=== PATIENT | male | born 1955 | race Caucasian/White ===

== ENCOUNTER 2018-05-11 07:57 | Outpatient (CLI) | payer OTHER ==
[2018-05-11 09:07] LABS: BUN - BLOOD UREA NITROGEN 15 mg/dL (6-20); CARBON DIOXIDE - CO2 23 mmol/L (21-32); CHLORIDE 106 mmol/L (101-111); CHOL/HDL RATIO 3.2 (<5.0); CHOLESTEROL 176 mg/dL; CREATININE 0.8 mg/dL (0.6-1.2); GFR - MDRD 98 (>89); GLUCOSE 111 mg/dL (70-100); HDL CHOLESTEROL 55 mg/dL; LDL CHOLESTEROL,CALCULATED 98 mg/dL; LDL/HDL RATIO 1.8 (<3.6); SODIUM 138 mmol/L (135-145); VLDL CHOLESTEROL 23 mg/dL
== END 2018-05-11 07:58 | disposition home or self-care (01) ==
LOC: LAB 07:57
PROVIDERS: ATTEND Internal Medicine
DX: Z00.00 Encounter for general adult medical examination without abnormal findings (principal)
CPT/HCPCS: 36415; 80048; 80061; 83721

== ENCOUNTER 2019-05-13 07:40 | Outpatient (CLI) | payer BC ==
[2019-05-13 08:24] LABS: BUN - BLOOD UREA NITROGEN 15 mg/dL (6-20); CALCIUM 8.5 mg/dL (8.5-10.3); CARBON DIOXIDE - CO2 21 mmol/L (21-32); CHLORIDE 108 mmol/L (101-111); CHOL/HDL RATIO 3.3 (<5.0); CHOLESTEROL 167 mg/dL; CREATININE 0.8 mg/dL (0.6-1.2); GFR - MDRD 98 (>89); GLUCOSE 112 mg/dL (70-100); HDL CHOLESTEROL 50 mg/dL; LDL CHOLESTEROL,CALCULATED 91 mg/dL; LDL/HDL RATIO 1.8 (<3.6); SODIUM 139 mmol/L (135-145); VLDL CHOLESTEROL 26 mg/dL
== END 2019-05-13 07:41 | disposition home or self-care (01) ==
LOC: LAB 07:40
PROVIDERS: ATTEND Student in an Organized Health Care Education/Training Program
DX: Z00.00 Encounter for general adult medical examination without abnormal findings (principal)
CPT/HCPCS: 36415; 80048; 80061; 83721; 84153

== ENCOUNTER 2020-06-12 07:48 | Outpatient (CLI) | payer BC ==
[2020-06-12 08:28] LABS: CHOL/HDL RATIO 3.5 (<5.0); CHOLESTEROL 176 mg/dL; HDL CHOLESTEROL 51 mg/dL; LDL CHOLESTEROL,CALCULATED 98 mg/dL; LDL/HDL RATIO 1.9 (<3.6); TRIGLYCERIDES 135 mg/dL; VLDL CHOLESTEROL 27 mg/dL
== END 2020-06-12 07:49 | disposition home or self-care (01) ==
LOC: LAB 07:48
PROVIDERS: ATTEND Student in an Organized Health Care Education/Training Program
DX: I10 Essential (primary) hypertension (principal); E55.9 Vitamin D deficiency, unspecified
CPT/HCPCS: 36415; 80061; 82306; 82652; 83721

== ENCOUNTER 2021-08-28 07:53 | Outpatient (CLI) | payer MEDICARE, OTHER ==
[2021-08-28 08:27] LABS: BUN - BLOOD UREA NITROGEN 15 mg/dL (6-20); CALCIUM 8.8 mg/dL (8.5-10.3); CARBON DIOXIDE - CO2 22 mmol/L (21-32); CHLORIDE 110 mmol/L (101-111); CHOL/HDL RATIO 2.9 (<5.0); CHOLESTEROL 166 mg/dL; CREATININE 0.9 mg/dL (0.6-1.2); GFR - MDRD 85 (>89); GLUCOSE 112 mg/dL (70-100); HDL CHOLESTEROL 58 mg/dL; LDL CHOLESTEROL,CALCULATED 88 mg/dL; LDL/HDL RATIO 1.5 (<3.6); POTASSIUM 4.2 mmol/L (3.5-5.0); SODIUM 140 mmol/L (135-145); TRIGLYCERIDES 100 mg/dL; VLDL CHOLESTEROL 20 mg/dL
== END 2021-08-28 07:54 | disposition home or self-care (01) ==
LOC: LAB 07:53
PROVIDERS: ATTEND Student in an Organized Health Care Education/Training Program
DX: Z00.00 Encounter for general adult medical examination without abnormal findings (principal)
CPT/HCPCS: 36415; 80048; 80061; 83721

== ENCOUNTER 2021-09-12 06:42 | Outpatient (CLI) | payer MEDICARE, OTHER ==
--- NOTE | 2021-09-12 09:15 | Ultrasound Report ---
PROCEDURE: Aorta Screening INDICATIONS: SCREENING TECHNIQUE: Real time scanning was performed of the aorta and iliac arteries, with image documentatio n. COMPARISON: None FINDINGS: Aorta: Proximal aortic diameter measures 2.8 x 2.9 cm. Mid-aorta measures 1.8 x 1.9 cm. Distal aor tic diameter is 1.8 x 2.2 cm. Iliac arteries: Right common iliac artery measures 1.2 x 1.3 cm. Left common iliac artery measures 1.4 x 1.4 cm. IMPRESSION: No abdominal aortic aneurysm. Reviewed by: Kieran Cordova MD on 09/12/2021 9:14 AM PDT Approved by: Kieran Cordova MD on 09/12/2021 9:14 AM PDT Station ID: [id number]
== END 2021-09-12 06:43 | disposition home or self-care (01) ==
LOC: DI 06:42
PROVIDERS: ATTEND Student in an Organized Health Care Education/Training Program
DX: Z00.00 Encounter for general adult medical examination without abnormal findings (principal); Z13.6 Encounter for screening for cardiovascular disorders

== ENCOUNTER 2023-02-03 07:31 | Emergency (ER) | payer MEDICARE, OTHER ==
[2023-02-03 08:13] LABS: BASOPHILS # (AUTO) 0.1 10^3/uL (0.0-0.1); BASOPHILS % (AUTO) 0.8 %; EOSINOPHILS # (AUTO) 0.2 10^3/uL (0.0-0.7); EOSINOPHILS % (AUTO) 2.9 %; HGB - HEMOGLOBIN 15.9 g/dL (14.0-18.0); LYMPHOCYTES # (AUTO) 1.5 10^3/uL (1.5-3.5); LYMPHOCYTES % (AUTO) 19.2 %; MEAN CORPUSCULAR HEMOGLOBIN 31.5 pg (27.0-31.0); MEAN CORPUSCULAR HGB CONC 34.6 g/dL (32.0-36.0); MEAN CORPUSCULAR VOLUME 91.1 fL (80.0-94.0); MONOCYTES # (AUTO) 0.7 10^3/uL (0.0-1.0); MONOCYTES % (AUTO) 9.5 %; NEUTROPHILS # (AUTO) 5.1 10^3/uL (1.5-6.6); NEUTROPHILS % (AUTO) 67.3 %; PLT - PLATELET COUNT 215 10^3/uL (130-450); RED BLOOD COUNT 5.05 10^6/uL (4.70-6.10); RED CELL DISTRIBUTION WIDTH 13.3 % (12.0-15.0); WHITE BLOOD COUNT 7.5 x10^3/uL (4.8-10.8)
[2023-02-03 08:28] LABS: ALBUMIN 4.3 g/dL (3.2-5.5); ALBUMIN/GLOBULIN RATIO 1.5 (1.0-2.2); BILIRUBIN,TOTAL 0.7 mg/dL (0.2-1.0); CALCIUM 9.2 mg/dL (8.5-10.3); CREATININE 0.9 mg/dL (0.6-1.3); POTASSIUM 3.9 mmol/L (3.5-4.5); TOTAL PROTEIN 7.1 g/dL (6.4-8.9)
--- NOTE | 2023-02-03 08:52 | ED Physician Documentation ---
PD HPI GI BLEED - Stated complaint Stated Complaint: ,BLOOD - Chief complaint Chief Complaint: Abd Pain - History obtained from History obtained from: Patient - History of Present Illness Timing - onset: Last night Timing - details: Abrupt onset, Still present Associated symptoms: BRBPR, Constipation (he had noted feeling of rectal stool but unable to have BM for day or so. Was pushing hard for BM several times without stool out. last night noted onset of bright red blood per rectum without any stool out. Noted some dripping to underwear through the night into this morning. some rectal pain.). No: Vomiting, Black/tarry stool Contributing factors: No: Sick contact, Bad food, Recent antibiotics, Anticoagulated Similar symptoms before: Has not had sx before Recently seen: Not recently seen Review of Systems Constitutional: denies: Fever, Chills Nose: reports: Sinus pressure / pain (for several weeks or more. Saw ENT and was due to concern of sinus cyst but toldhe didnot have that. No Rx.) GI: reports: Constipation (with firm stool and feeling of rectal fullness c/w needing to defectate for 1-2 days. Pushing several times to have BM without output.). denies: Abdominal Pain, Vomiting, Diarrhea : denies: Dysuria, Frequency PD PAST MEDICAL HISTORY - Past Medical History Cardiovascular: Hypertension Respiratory: None Neuro: Migraines Endocrine/Autoimmune: None GI: Other (loose stools and was placed on cholestyramine for that. ) - Present Medications Home Medications: Ambulatory Orders Medication Instructions Recorded Confirmed Cholestyramine [Questran] 4 gm PO DAILY 02/03/23 02/03/23 Fluticasone Propionate 2 spr NS DAILY 30 Days #1 ml 02/03/23 Galcanezumab-Gnlm [Emgality Pen] 02/03/23 Rizatriptan Benzoate [Rizatriptan] 5 mg PO DAILY 02/03/23 02/03/23 carvediloL [Coreg] 6.25 mg PO DAILY 02/03/23 02/03/23 polyethylene glycoL 3350(BULK) 17 gm PO DAILY PRN #1 each 02/03/23 [Miralax] - Allergies Allergies/Adverse Reactions: Allergies Allergy/AdvReac Type Severity Reaction Status Date / Time No Known Drug Allergies Allergy Verified 02/03/23 07:45 PD ED PE NORMAL - Vitals Vital signs reviewed: Yes - General General: Alert and oriented X 3, No acute distress, Well developed/nourished - Abdomen Abdomen: Normal bowel sounds, Soft, Non tender, Non distended, No organomegaly - Male Male : Deferred - Rectal Rectal: Other (no hemorrhoids noted. Some mild swelling just in rectum at anterior left area, without mass. There is stool firmly felt at tip of my finger, but not able to digitiall disimpact. Red blood in vault. No melena. ) Results - Vitals Vitals: Vital Signs - 24 hr 02/03/23 02/03/23 02/03/23 07:46 10:04 12:11 Temperature 36.6 C 36.4 C L Heart Rate 117 H 96 78 Respiratory 16 18 16 Rate Blood Pressure 177/100 H 161/99 H 162/105 H O2 Saturation 95 97 95 Oxygen O2 Source Room air - Labs Labs: Laboratory Tests 02/03/23 02/03/23 02/03/23 08:07 08:07 09:13 WBC 7.5 RBC 5.05 Hgb 15.9 Hct 46.0 MCV 91.1 MCH 31.5 H MCHC 34.6 RDW 13.3 Plt Count 215 MPV 9.0 Neut # (Auto) 5.1 Lymph # (Auto) 1.5 [place] # (Auto) 0.7 Eos # (Auto) 0.2 Baso # (Auto) 0.1 Absolute Nucleated RBC 0.00 Nucleated RBC % 0.0 Sodium 139 Potassium 3.9 Chloride 108 Carbon Dioxide 25 Anion Gap 6.0 BUN 16 Creatinine 0.9 Estimated GFR (MDRD) 84 L Glucose 123 H Calcium 9.2 Total Bilirubin 0.7 AST 22 ALT 24 Alkaline Phosphatase 80 Total Protein 7.1 Albumin 4.3 Globulin 2.8 Albumin/Globulin Ratio 1.5 Lipase 70 Urine Color YELLOW Urine Clarity CLEAR Urine pH 6.0 Ur Specific [place] 1.020 Urine Protein NEGATIVE Urine Glucose (UA) NEGATIVE Urine Ketones NEGATIVE Urine Occult Blood NEGATIVE Urine Nitrite NEGATIVE Urine Bilirubin NEGATIVE Urine Urobilinogen 0.2 (NORMAL) Ur Leukocyte Esterase NEGATIVE Ur Microscopic Review NOT INDICATED Urine Culture Comments NOT INDICATED - Rads (name of study) abd/pelvic CT Relevant Findings:: Prelim report reviewed (no masses. Normal bowle wall thickness. No acute cause forthe bleeding. ), EMP independent interpretation of test PD Medical Decision Making - ED course Complexity details: reviewed results, re-evaluated patient (CBC is good with Hgb 15. Vitals are good. Does not appear to be having too much blood loss. Underwear and a pad do have appearance of red blood but not saturated.), considered differential (red rectal bleeding in setting of some rectal stool impaction. Presume fissure or such. However cannnot exclude rectal mass or other abnormal. Can get CT to eval, but also suggest scope in near future. ), d/w patient, d/w sql server consultant (Dr. Alanis, who concurs with discharge, stool sfotener, and repeat followup if persists or increases. Otherwise f/u for presumed colonoscopy in near future. ) ED course: He had a feeling of rectal urgency and fullness and having to have a bowel movement. He tried several times yesterday without any output. He noted onset of bright red blood per rectum without any stool last night which continued today. He is dripping out onto his underwear. Some rectal fullness and discomfort. No abdominal pain bloating or distention. No prior similar. Remote history of diverticulitis 10 years ago. No current episodes of hemorrhoids nor blood with wiping. Initial impression on exam is nontender abdomen. Rectal exam did not show any external hemorrhoids. Mild fullness just in the inner aspect with without any obvious fissures. There is a firm ball of stool just at the tip of my finger and I cannot really reach it beyond that. Presumably some rectal irritation from the stool impaction and likely movement [id number] with attempted bowel movements. However cannot exclude mass structure or diverticula or other process. A CT scan would be appropriate to exclude these. Initial blood count is good at a hemoglobin of 15 so no significant blood loss estimated. Vitals are good. CT scan does not show any obvious masses, localized infection such as diverticulitis or colitis or other obvious cause of bleeding. At this point clinically would sound likely to be the rectal stool that is been having some impaction over a couple of days. This did come out with the enema and he has a feeling of less rectal pressure. Presume a small fissure created. However there could still be concern for rectal wall abnormalities not found on CT. I. I did talk with Dr. Alanis on-call for surgery who suggested we could treated as a small tear or fissure at this point and see if the bleeding stops with stool softener and more regularity. Recheck if not improved over the next day or 2 and return if worsening bleeding. She did urged the patient to follow-up for a subsequent colonoscopy once better to evaluate for any other abnormalities. The patient states he had a last colonoscopy at least several years ago. Unrelated, the patient complains of right-sided sinus pressure without any fevers or drainage. He been told by his oral surgeon on a recent visit that he had sinus fluid on an x-ray. He asked about potential treatment and I suggested fluticasone. Departure - Departure Disposition: Home, Self Care Clinical Impression: Rectal bleeding, Impacted stool in rectum, Sinus pressure, Rectal fissure Condition: Stable Record reviewed to determine appropriate education?: Yes Instructions: ED Hematochezia Stable Follow-Up: Elly Alanis MD [Provider Admit Priv/Credential] - Prescriptions: Fluticasone Propionate 2 spr NS DAILY 30 Days #1 ml polyethylene glycoL 3350(BULK) [Miralax] 17 gm PO DAILY PRN #1 each PRN Reason: Constipation Comments: No masses or diverticulitis/colitis are seen on your CT scan. This does sound most likely to be a small tear or fissure at the rectal area likely related to the firm stool there. Other considerations could be some other abnormality of the mucosal wall or polyp or such. The initial treatment would be just a softer stool and sitting baths in warm water to help clear the area and cleanse it. Use MiraLAX once or twice daily to as needed for soft stools. You do not want to be watery per se. At this point soft would be good without really much formed stool for the next several days at least until improved. Stay well-hydrated. There likely will be some bleeding still out over the next day or 2 as the tissue heals in the area. Recheck if it persists more than a couple of days or return if you have abdominal pain, increasing rectal pain, lightheadedness, fever, significant uptake in the degree of bleeding or other concerns. Otherwise if the bleeding stops in the next day or 2 and no other problems then continue with some looser to slightly formed stool and try to avoid firm stools/constipation. Follow-up with the general surgery office for subsequent discussion about colonoscopy to evaluate the area. This will be best done when this is fully healed so over the next at least few weeks before wanting to do it but you can consult with the surgery office even later this week, call for an appointment. Regarding your sinus pressure and congestion, I would suggest fluticasone nasal spray once or twice daily for the next several weeks to a month and see how it improves. Forms: PCP List Discharge Date/Time: 02/03/23 14:50
[2023-02-03 09:33] LABS: BILIRUBIN,URINE NEGATIVE (NEGATIVE); CLARITY,URINE CLEAR (CLEAR); GLUCOSE, URINE (UA) NEGATIVE (NEGATIVE); KETONES,URINE (UA) NEGATIVE (NEGATIVE); LEUKOCYTE ESTERASE, URINE NEGATIVE (NEGATIVE); NITRITE,URINE NEGATIVE (NEGATIVE); OCCULT BLOOD,URINE NEGATIVE (NEGATIVE); PROTEIN,URINE NEGATIVE (NEGATIVE); UROBILINOGEN,URINE 0.2 (NORMAL) E.U./dL (NORMAL)
[2023-02-03] MEDS ORDERED: MINERAL OIL ENEMA 133 ML BOTTLE RC STA (09:39)
[2023-02-03] MEDS ORDERED: DOCUSATE SODIUM 100 MG CAPSULE PO STA (09:39)
[2023-02-03] MEDS ORDERED: LACTULOSE 10 GM /15 ML UDC PO STA (09:39)
[2023-02-03] MEDS ORDERED: LIDOCAINE 1% 2 ML VIAL ONE (10:30)
[2023-02-03] MEDS ORDERED: LIDOCAINE 1% 2 ML VIAL SUBQ STA (11:43)
--- NOTE | 2023-02-03 12:17 | CT Report ---
PROCEDURE: ABDOMEN/PELVIS W INDICATIONS: lower GI/rectal bleeding since yest CONTRAST: 100ml omni 300 TECHNIQUE: After the administration of IV contrast, 5 mm thick sections acquired from the diaphragms to the symp hysis. 5 mm thick coronal and sagittal reformats were acquired. For radiation dose reduction, the f ollowing was used: automated exposure control, adjustment of mA and/or kV according to patient size. COMPARISON: None FINDINGS: Image quality: Excellent. Lung bases and heart: Unremarkable. Liver: No solid mass. Gallbladder and biliary tree: Removed. Spleen: No splenomegaly. Pancreas: No pancreatic ductal dilation. Adrenals: No adrenal nodule. Kidneys and ureters: No hydronephrosis. No renal cystic lesion which requires follow up. No solid mas s. Simple left renal cyst. Bowel and peritoneum: No bowel distension. No pathologic free fluid. Mild hiatal hernia. Lymph nodes: No central or retroperitoneal adenopathy. Vessels: No infrarenal aortic aneurysm. PELVIS Reproductive organs: Unremarkable. Bladder: No abnormal wall thickening, accounting for underdistension. Pelvic lymph nodes: No pelvic adenopathy by size criteria. Bones: No aggressive osseous abnormality. Other: Small bilateral fat containing inguinal hernia. IMPRESSION: No visualized cause of bleeding. Reviewed by: Gracia Melo MD on 02/03/2023 12:16 PM PDT Approved by: Gracia Melo MD on 02/03/2023 12:16 PM PDT Station ID: [id number]
[2023-02-03 12:18] VITALS: BP 162/105; O2SAT 95
[2023-02-03] MEDS ORDERED: iohexoL-300 100 ML VIAL IVP ONE (13:44)
== END 2023-02-03 14:50 | disposition home or self-care (01) ==
LOC: ED 07:31
DX: K62.5 Hemorrhage of anus and rectum (principal); K56.41 Fecal impaction; K60.2 Anal fissure, unspecified; J34.89 Other specified disorders of nose and nasal sinuses
CPT/HCPCS: 36415; 74177; 80053; 81003; 83690; 85025; 99284; A9270; Q9967; 81001; 87086

== ENCOUNTER 2023-06-09 19:06 | Emergency (ER) | payer MEDICARE, OTHER ==
[2023-06-09 20:10] LABS: BASOPHILS # (AUTO) 0.1 10^3/uL (0.0-0.1); BASOPHILS % (AUTO) 0.6 %; EOSINOPHILS # (AUTO) 0.3 10^3/uL (0.0-0.7); EOSINOPHILS % (AUTO) 2.8 %; HCT - HEMATOCRIT 49.4 % (42.0-52.0); LYMPHOCYTES # (AUTO) 1.3 10^3/uL (1.5-3.5); LYMPHOCYTES % (AUTO) 13.2 %; MEAN CORPUSCULAR HEMOGLOBIN 31.5 pg (27.0-31.0); MEAN CORPUSCULAR HGB CONC 34.4 g/dL (32.0-36.0); MEAN CORPUSCULAR VOLUME 91.7 fL (80.0-94.0); MEAN PLATELET VOLUME 9.1 fL (7.4-11.4); MONOCYTES # (AUTO) 0.9 10^3/uL (0.0-1.0); MONOCYTES % (AUTO) 8.3 %; NEUTROPHILS # (AUTO) 7.6 10^3/uL (1.5-6.6); NEUTROPHILS % (AUTO) 74.8 %; PLT - PLATELET COUNT 223 10^3/uL (130-450); RED BLOOD COUNT 5.39 10^6/uL (4.70-6.10); RED CELL DISTRIBUTION WIDTH 13.2 % (12.0-15.0); WHITE BLOOD COUNT 10.2 x10^3/uL (4.8-10.8)
[2023-06-09 20:21] LABS: INR 1.1 (0.8-1.2); PT - PROTHROMBIN TIME 11.6 secs (9.9-12.6)
[2023-06-09 20:27] LABS: ALBUMIN 4.4 g/dL (3.2-5.5); ALBUMIN/GLOBULIN RATIO 1.4 (1.0-2.2); BILIRUBIN,TOTAL 0.5 mg/dL (0.2-1.0); CALCIUM 10.1 mg/dL (8.5-10.3); CREATININE 0.9 mg/dL (0.6-1.3); POTASSIUM 4.1 mmol/L (3.5-4.5); TOTAL PROTEIN 7.6 g/dL (6.4-8.9)
--- NOTE | 2023-06-09 21:38 | ED Physician Documentation ---
PD HPI GI BLEED - Stated complaint Stated Complaint: RECTAL BLEEDING - Chief complaint Chief Complaint: Abd Pain - History obtained from History obtained from: Patient - History of Present Illness Timing - onset: Today Timing - duration: Hours Timing - details: Abrupt onset, Still present Associated symptoms: BRBPR, Diarrhea Contributing factors: Other (hx of constipation and rectal ugency treated with cholestyramine) Improved by: BM Worsened by: Palpation Similar symptoms before: No diagnosis Recently seen: Not recently seen - Additional information Additional information: To take this les cathie Bob 67-year-old August López has a history of rectal urgency for which she was treated with cholestyramine. This usually allows him to have normal bowel movements and he has reduced his use of this to every other day. He had had a history of constipation was seen in the emergency department here in January of last year. He did not have a follow-up colonoscopy done and he has not seen gastroenterology. He reports having had issues with bowel movements for 5 or 6 years after getting his gallbladder out. Today he reports multiple loose stools with blood. He has had diarrhea 5 times today. He has pain in his rectum. Review of Systems Constitutional: denies: Fever Eyes: denies: Decreased vision Ears: denies: Ear pain Nose: denies: Congestion Throat: denies: Sore throat Respiratory: denies: Cough GI: reports: Diarrhea, Bloody / black stool. denies: Vomiting : denies: Dysuria, Frequency Skin: denies: Rash Musculoskeletal: denies: Neck pain, Back pain, Extremity pain Neurologic: denies: Generalized weakness, Focal weakness, Numbness PD PAST MEDICAL HISTORY - Past Medical History Past Medical History: Yes Cardiovascular: Hypertension Respiratory: None Neuro: Migraines Endocrine/Autoimmune: None GI: Other - Past Surgical History Past Surgical History: Yes General: Cholecystectomy - Present Medications Home Medications: Ambulatory Orders Medication Instructions Recorded Confirmed Cholestyramine [Questran] 4 gm PO DAILY 02/03/23 02/03/23 Fluticasone Propionate 2 spr NS DAILY 30 Days #1 ml 02/03/23 Galcanezumab-Gnlm [Emgality Pen] 02/03/23 Rizatriptan Benzoate [Rizatriptan] 5 mg PO DAILY 02/03/23 02/03/23 carvediloL [Coreg] 6.25 mg PO DAILY 02/03/23 02/03/23 polyethylene glycoL 3350(BULK) 17 gm PO DAILY PRN #1 each 02/03/23 [Miralax] Hydrocortisone Acetate [Proctocort] 30 mg RC BID #20 supp.rect 06/09/23 - Allergies Allergies/Adverse Reactions: Allergies Allergy/AdvReac Type Severity Reaction Status Date / Time No Known Drug Allergies Allergy Verified 06/09/23 19:27 - Social History Does the pt smoke?: No Smoking Status: Never smoker PD ED PE NORMAL - Vitals Vital signs reviewed: Yes (Tachycardic and hypertensive) - General General: Alert and oriented X 3, Well developed/nourished, Other (Rod Buster tone and flattened affect consistent with concern) - HEENT HEENT: Atraumatic, PERRL, EOMI - Cardiac Cardiac: No murmur, Other (Tachycardic to 100) - Respiratory Respiratory: No respiratory distress, Clear bilaterally - Abdomen Abdomen: Soft, Non tender - Rectal Rectal: Other (On rectal exam there is a fleshy mass consistent with a external hemorrhoid that is tender and bleeding. 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, No motor deficit, No sensory deficit, Normal speech Eye Opening: Spontaneous Motor: Obeys Commands Verbal: Oriented GCS Score: 15 Results - Vitals Vitals: Vital Signs - 24 hr 06/09/23 06/09/23 19:20 21:08 Temperature 36.8 C Heart Rate 108 H 80 Respiratory 22 18 Rate Blood Pressure 178/123 H 170/100 H O2 Saturation 98 94 Oxygen O2 Source Room air - Labs Labs: Laboratory Tests 06/09/23 06/09/23 06/09/23 20:05 20:05 20:05 WBC 10.2 RBC 5.39 Hgb 17.0 Hct 49.4 MCV 91.7 MCH 31.5 H MCHC 34.4 RDW 13.2 Plt Count 223 MPV 9.1 Neut # (Auto) 7.6 H Lymph # (Auto) 1.3 L [place] # (Auto) 0.9 Eos # (Auto) 0.3 Baso # (Auto) 0.1 Absolute Nucleated RBC 0.00 Nucleated RBC % 0.0 PT 11.6 INR 1.1 Sodium Potassium Chloride Carbon Dioxide Anion Gap BUN Creatinine Estimated GFR (MDRD) Glucose Calcium Total Bilirubin AST ALT Alkaline Phosphatase Total Protein Albumin Globulin Albumin/Globulin Ratio Blood Type O POSITIVE Antibody Screen NEGATIVE 06/09/23 20:05 WBC RBC Hgb Hct MCV MCH MCHC RDW Plt Count MPV Neut # (Auto) Lymph # (Auto) [place] # (Auto) Eos # (Auto) Baso # (Auto) Absolute Nucleated RBC Nucleated RBC % PT INR Sodium 137 Potassium 4.1 Chloride 107 Carbon Dioxide 24 Anion Gap 6.0 BUN 14 Creatinine 0.9 Estimated GFR (MDRD) 84 L Glucose 105 H Calcium 10.1 Total Bilirubin 0.5 AST 25 ALT 27 Alkaline Phosphatase 97 Total Protein 7.6 Albumin 4.4 Globulin 3.2 Albumin/Globulin Ratio 1.4 Blood Type Antibody Screen PD Medical Decision Making - ED course Complexity details: reviewed old records, reviewed results, re-evaluated patient, considered differential, d/w patient Reviewed Lab Results: We reviewed a complete blood count showing a normal white blood cell count normal hemoglobin hematocrit and platelets coagulations were unremarkable chemistries showed normal electrolytes normal kidney and liver function. I interpreted these blood test indicate that the patient's blood loss was not significant enough to cause a significant drop in his blood count and the overall process more benign. This appears consistent with the bleeding hemorrhoids found on exam and the inflammation found in the rectum. ED course: 67-year-old male with bloody diarrhea and inflamed hemorrhoids has not had follow-up from his prior visit. Today this looks like illness is confined to the area of interest and treatment specifically for the hemorrhoids is indicated as well as a follow-up. Departure - Departure Disposition: 01 Home, Self Care Clinical Impression: Bleeding external hemorrhoids Condition: Stable Instructions: Hydrocortisone suppositories, ED Hemorrhoids, ED Hematochezia Stable Follow-Up: Dave Garland MD [Primary Care Provider] - Elly Alanis MD [Provider Admit Priv/Credential] - Prescriptions: Hydrocortisone Acetate [Proctocort] 30 mg RC BID #20 supp.rect Comments: August, today it looks like you have some inflamed external hemorrhoids that are bleeding. There is significant swelling and inflammation. This may represent a form of inflammatory bowel disease. We have initiated treatment with hydrocortisone suppositories. I have e-scribed Proctocort to the community pharmacy here in [place]. Use these twice per day and expect to have some improvement in bleeding, pain and swelling over the next 2-3 days. Today your blood counts are normal despite the blood loss. If you have worsening or persistence of significant blood loss or have a fainting episode return to the emergency department for further evaluation. My recommendation is to follow-up with the surgeon (Dr. Alanis) for colonoscopy and biopsies for confirmation of a diagnosis. Further treatment may be indicated with specific agents and your general bowel symptoms may improve dramatically.
[2023-06-09] MEDS: HYDROCORTISONE 25 MG SUPPOSITORY PR STA (22:21)
[2023-06-09 23:02] VITALS: BP 170/112; O2SAT 95
== END 2023-06-09 22:30 | disposition home or self-care (01) ==
LOC: ED 19:06
DX: K64.5 Perianal venous thrombosis (principal); I10 Essential (primary) hypertension; Z79.899 Other long term (current) drug therapy
CPT/HCPCS: 36415; 80053; 85025; 85610; 86850; 86900; 86901; 99283; J3490

== ENCOUNTER 2023-07-26 10:09 | Emergency (ER) | payer MEDICARE, OTHER ==
[2023-07-26 10:38] VITALS: O2SAT 97
--- NOTE | 2023-07-26 11:21 | ED Physician Documentation ---
PD HPI HEADACHE - Stated complaint Stated Complaint: NAUSEA,HEADACHE - Chief complaint Chief Complaint: Neuro - History obtained from History obtained from: Patient - History of Present Illness Timing - onset: How many days ago (5) Timing - onset during: Light activity Timing - duration: Days (5) Timing - details: Gradual onset, Still present Worst headache ever?: No: Worst headache ever? (feels similar chracter and intensity to his regular migraines, but has persisted much longer than typical.) Quality: Throbbing, Aching Improved by: Dark room, Quiet, Meds (tryptans have decreased the BENITES moderately well but resurges without several hours.) Worsened by: Light, Noise Contributing factors: No: Recent illness, Trauma Similar symptoms before: Diagnosis (migraines and sees neurologist for them. Has several meds at home migraine related that work medium okay.) Recently seen: Not recently seen Review of Systems Constitutional: denies: Fever, Chills Nose: denies: Rhinorrhea / runny nose, Congestion Throat: denies: Sore throat Respiratory: denies: Cough GI: reports: Nausea, Vomiting. denies: Abdominal Pain, Diarrhea Skin: denies: Rash, Lesions Musculoskeletal: denies: Neck pain, Back pain Neurologic: reports: Generalized weakness, Headache. denies: Focal weakness, Numbness, Near syncope, Altered mental status, Head injury PD PAST MEDICAL HISTORY - Past Medical History Cardiovascular: Hypertension Respiratory: None Neuro: Migraines Endocrine/Autoimmune: None GI: Hemorrhoids - Past Surgical History Past Surgical History: Yes General: Cholecystectomy - Present Medications Home Medications: Ambulatory Orders Medication Instructions Recorded Confirmed Cholestyramine [Questran] 4 gm PO DAILY 02/03/23 02/03/23 Fluticasone Propionate 2 spr NS DAILY 30 Days #1 ml 02/03/23 Galcanezumab-Gnlm [Emgality Pen] 10 mg IM 02/03/23 Rizatriptan Benzoate [Rizatriptan] 5 mg PO DAILY 02/03/23 02/03/23 carvediloL [Coreg] 6.25 mg PO DAILY 02/03/23 02/03/23 polyethylene glycoL 3350(BULK) 17 gm PO DAILY PRN #1 each 02/03/23 [Miralax] Hydrocortisone Acetate [Proctocort] 30 mg RC BID #20 supp.rect 02/26/24 Amitriptyline [Elavil] 25 mg PO HS #10 tablet 07/26/23 HYDROcod/ACETAM 5/325 [[place] 5/325] 1 ea PO Q6H PRN #15 tablet 07/26/23 Prochlorperazine [Compazine] 10 mg PO Q6H #20 tablet 07/26/23 dexAMETHasone [Decadron] 4 mg PO DAILY #7 tablet 07/26/23 - Allergies Allergies/Adverse Reactions: Allergies Allergy/AdvReac Type Severity Reaction Status Date / Time No Known Drug Allergies Allergy Verified 06/09/23 19:27 - Social History Does the pt smoke?: No Smoking Status: Never smoker PD ED PE NORMAL - General General: Alert and oriented X 3, Well developed/nourished, Other (appears uncomfortable with headache. Polite and conversant. Lights bothersome. 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 Opted for IM meds and he states BENITES fading well, but not fully resolved. He feels comfortable with going home. Rx given for meds symptoms and also prophylactic short term (decadron and elavil).), considered differential (he states character and symptoms are c/w his migraines. The duration and persistence are unusual. No other recent illness. No red flags per se. Seems c/w migraine status.), d/w patient Departure - Departure Disposition: 01 Home, Self Care Clinical Impression: Migraine with status migrainosus Condition: Stable Record reviewed to determine appropriate education?: Yes Instructions: ED Headache Migraine Follow-Up: Dave Garland MD [Primary Care Provider] - Prescriptions: Prochlorperazine [Compazine] 10 mg PO Q6H #20 tablet dexAMETHasone [Decadron] 4 mg PO DAILY #7 tablet Amitriptyline [Elavil] 25 mg PO HS #10 tablet HYDROcod/ACETAM 5/325 [[place] 5/325] 1 ea PO Q6H PRN #15 tablet PRN Reason: Pain Comments: For mild headache and pain you can use Tylenol 500 to 650 mg every 4-6 hours if needed. For the migraine type headache, hopefully will head off the persistence of the migraine with a combination of dexamethasone steroid daily for the next 5 to 7 days and amitriptyline very low-dose 25 mg at night for the next week or so as well. These are commonly used by neurologist to try to reduce rebound headache after a status migraine. If you do get the migraine back again, you can try combination of your triptan medications along with Compazine nausea medicine (with the main effect being antimigraine from it in this context) as well as Tylenol. The [facility] pharmacy was closed today. I sent your prescriptions to the [facility] pharmacy. Follow-up with your neurologist. Forms: PCP List Discharge Date/Time: 07/26/23 13:55
[2023-07-26] MEDS: SODIUM CHLORIDE 0.9% 1,000 ML IV STA (12:13)
[2023-07-26] MEDS: DEXAMETHASONE 10 MG/ML VIAL IVP STA (12:14)
[2023-07-26] MEDS: PROCHLORPERAZINE 10 MG/2 ML VIAL IVP STA (12:14)
[2023-07-26] MEDS: KETOROLAC 15 MG/ML VIAL IVP STA (12:15)
[2023-07-26] MEDS: PROCHLORPERAZINE 10 MG/2 ML VIAL IM STA (12:58)
[2023-07-26] MEDS: KETOROLAC 15 MG/ML VIAL IM STA (12:58)
[2023-07-26] MEDS: dexAMETHasone 4 MG TABLET PO STA (13:22)
[2023-07-26 13:29] VITALS: BP 151/96
== END 2023-07-26 13:55 | disposition home or self-care (01) ==
LOC: ED 10:09
DX: G43.001 Migraine without aura, not intractable, with status migrainosus (principal); I10 Essential (primary) hypertension; Z79.899 Other long term (current) drug therapy
CPT/HCPCS: 96372; 99283; J8540

== ENCOUNTER 2023-09-06 06:18 | Outpatient (CLI) | payer MEDICARE, OTHER | END 2023-09-06 23:59 | disposition critical access hospital (66) | LOC: EMS 06:18 | DX: M54.2 Cervicalgia (principal); I10 Essential (primary) hypertension | CPT/HCPCS: A0425; A0429 ==

== ENCOUNTER 2023-12-19 04:10 | Emergency (ER) | payer MEDICARE, OTHER ==
[2023-12-19 04:35] LABS: BASOPHILS # (AUTO) 0.1 10^3/uL (0.0-0.1); BASOPHILS % (AUTO) 0.6 %; EOSINOPHILS # (AUTO) 0.1 10^3/uL (0.0-0.7); EOSINOPHILS % (AUTO) 1.2 %; HCT - HEMATOCRIT 42.4 % (42.0-52.0); HGB - HEMOGLOBIN 14.8 g/dL (14.0-18.0); LYMPHOCYTES # (AUTO) 1.5 10^3/uL (1.5-3.5); LYMPHOCYTES % (AUTO) 18.6 %; MEAN CORPUSCULAR HEMOGLOBIN 32.2 pg (27.0-31.0); MEAN CORPUSCULAR HGB CONC 34.9 g/dL (32.0-36.0); MEAN CORPUSCULAR VOLUME 92.2 fL (80.0-94.0); MEAN PLATELET VOLUME 8.7 fL (7.4-11.4); MONOCYTES # (AUTO) 0.6 10^3/uL (0.0-1.0); MONOCYTES % (AUTO) 7.8 %; NEUTROPHILS # (AUTO) 5.8 10^3/uL (1.5-6.6); NEUTROPHILS % (AUTO) 71.6 %; PLT - PLATELET COUNT 218 10^3/uL (130-450); RED CELL DISTRIBUTION WIDTH 12.9 % (12.0-15.0); WHITE BLOOD COUNT 8.1 x10^3/uL (4.8-10.8)
[2023-12-19] MEDS: carvediloL 12.5 MG TABLET PO STA (04:44)
[2023-12-19 04:52] LABS: ALBUMIN 4.1 g/dL (3.2-5.5); ALBUMIN/GLOBULIN RATIO 1.5 (1.0-2.2); BILIRUBIN,TOTAL 0.5 mg/dL (0.2-1.0); CALCIUM 8.9 mg/dL (8.5-10.3); CREATININE 0.8 mg/dL (0.6-1.3); POTASSIUM 4.1 mmol/L (3.5-4.5); TOTAL PROTEIN 6.8 g/dL (6.4-8.9)
--- NOTE | 2023-12-19 04:55 | ED Physician Documentation ---
History of Present Illness - Stated complaint Stated Complaint: HEADACHE - Chief complaint Chief Complaint: Neuro - History obtained from History obtained from: Patient - Additonal information Additional information: 68-year-old male with history of hypertension, migraines, presents with migraine headache starting tonight, unresolved with home prescription medications including Dilaudid. Patient's neurologist is Dr. Delong. Denies focal neurological deficit. Denies fever, neck pain, confusion, head trauma. PD PAST MEDICAL HISTORY - Past Medical History Past Medical History: Yes Cardiovascular: Hypertension Respiratory: None Neuro: Migraines Endocrine/Autoimmune: None GI: Hemorrhoids - Past Surgical History Past Surgical History: Yes General: Cholecystectomy - Present Medications Home Medications: Ambulatory Orders Medication Instructions Recorded Confirmed Cholestyramine [Questran] 4 gm PO DAILY 02/03/23 02/03/23 Fluticasone Propionate 2 spr NS DAILY 30 Days #1 ml 02/03/23 Galcanezumab-Gnlm [Emgality Pen] 10 mg IM 02/03/23 Rizatriptan Benzoate [Rizatriptan] 5 mg PO DAILY 02/03/23 02/03/23 carvediloL [Coreg] 6.25 mg PO DAILY 02/03/23 02/03/23 polyethylene glycoL 3350(BULK) 17 gm PO DAILY PRN #1 each 02/03/23 [Miralax] Hydrocortisone Acetate [Proctocort] 30 mg RC BID #20 supp.rect 06/09/23 Amitriptyline [Elavil] 25 mg PO HS #10 tablet 07/26/23 HYDROcod/ACETAM 5/325 [[place] 5/325] 1 ea PO Q6H PRN #15 tablet 07/26/23 Prochlorperazine [Compazine] 10 mg PO Q6H #20 tablet 07/26/23 dexAMETHasone [Decadron] 4 mg PO DAILY #7 tablet 07/26/23 HYDROmorphone [Dilaudid] 1 tab PO Q4H PRN #10 tablet 09/06/23 Tizanidine HCl 4 mg PO Q6H PRN #10 tablet 09/06/23 - Allergies Allergies/Adverse Reactions: Allergies Allergy/AdvReac Type Severity Reaction Status Date / Time No Known Drug Allergies Allergy Verified 12/19/23 04:20 - Social History Does the pt smoke?: No Smoking Status: Never smoker PD ED PE NORMAL - Vitals Vital signs reviewed: Yes - General General: Alert and oriented X 3, No acute distress, Well developed/nourished - HEENT HEENT: Atraumatic, PERRL, EOMI - Neck Neck: Supple, no meningeal sign - Cardiac Cardiac: RRR - Respiratory Respiratory: No respiratory distress, Clear bilaterally - Abdomen Abdomen: Non tender, Non distended - Derm Derm: Normal color, Warm and dry - Neuro Neuro: Alert and oriented X 3, 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, No motor deficit, No sensory deficit, Normal speech Eye Opening: Spontaneous Motor: Obeys Commands Verbal: Oriented GCS Score: 15 Results - Vitals Vitals: Vital Signs - 24 hr 12/19/23 12/19/23 12/19/23 04:16 04:20 04:36 Temperature 36.5 C Heart Rate 98 98 Respiratory 18 Rate Blood Pressure 200/122 H 167/103 H O2 Saturation 97 Oxygen O2 Source Room air - Labs Labs: Laboratory Tests 12/19/23 04:30 WBC 8.1 RBC 4.60 L Hgb 14.8 Hct 42.4 MCV 92.2 MCH 32.2 H MCHC 34.9 RDW 12.9 Plt Count 218 MPV 8.7 Neut # (Auto) 5.8 Lymph # (Auto) 1.5 [place] # (Auto) 0.6 Eos # (Auto) 0.1 Baso # (Auto) 0.1 Absolute Nucleated RBC 0.00 Nucleated RBC % 0.0 PD Medical Decision Making - ED course ED course: 68-year-old man presents with frontal headache, along with some hypertension with blood pressure 200/122, improving to 167 systolic after examination and reassurance. I initially ordered antihypertensive home medication but canceled it after he had improvement on his own and blood pressure. Note that on prior visits he has had systolic blood pressure in the 190s. Migraine cocktail was ordered including IV Toradol, Reglan, Benadryl, fluids, and oral Tylenol with improvement in headache. Plan to follow-up outpatient with his neurologist. Return precautions given. Departure - Departure
[2023-12-19] MEDS: ACETAMINOPHEN 325 MG TABLET PO STA (05:01)
[2023-12-19] MEDS: KETOROLAC 15 MG/ML VIAL IVP STA (05:02)
[2023-12-19] MEDS: METOCLOPRAMIDE 10 MG/2 ML VIAL IVP STA (05:02)
[2023-12-19] MEDS: SODIUM CHLORIDE 0.9% 500 ML IV STA (05:02)
[2023-12-19] MEDS: diphenhydrAMINE INJ 50 MG/ML VIAL IVP STA (05:02)
[2023-12-19] MEDS: DROPERIDOL 5 MG/2 ML VIAL IVP STA (05:59)
[2023-12-19] MEDS: SUMAtriptan 6 MG/0.5 ML VIAL SUBQ STA (05:59)
[2023-12-19 06:27] VITALS: BP 141/91; O2SAT 98
== END 2023-12-19 06:38 | disposition home or self-care (01) ==
LOC: ED 04:10
DX: R51.9 Headache, unspecified (principal); I10 Essential (primary) hypertension
CPT/HCPCS: 36415; 80053; 83690; 85025; 96372; 96374; 96375; 99283; 99285; A9270; J1200; J2765

== ENCOUNTER 2024-01-02 10:47 | Outpatient (CLI) | payer MEDICARE, OTHER ==
[2024-01-02 10:56] LABS: BASOPHILS # (AUTO) 0.1 10^3/uL (0.0-0.1); BASOPHILS % (AUTO) 0.7 %; EOSINOPHILS # (AUTO) 0.1 10^3/uL (0.0-0.7); EOSINOPHILS % (AUTO) 1.6 %; HCT - HEMATOCRIT 45.3 % (42.0-52.0); HGB - HEMOGLOBIN 15.6 g/dL (14.0-18.0); LYMPHOCYTES # (AUTO) 1.8 10^3/uL (1.5-3.5); LYMPHOCYTES % (AUTO) 25.1 %; MEAN CORPUSCULAR HEMOGLOBIN 31.8 pg (27.0-31.0); MEAN CORPUSCULAR HGB CONC 34.4 g/dL (32.0-36.0); MEAN CORPUSCULAR VOLUME 92.3 fL (80.0-94.0); MEAN PLATELET VOLUME 8.8 fL (7.4-11.4); MONOCYTES # (AUTO) 0.8 10^3/uL (0.0-1.0); MONOCYTES % (AUTO) 10.6 %; NEUTROPHILS # (AUTO) 4.5 10^3/uL (1.5-6.6); NEUTROPHILS % (AUTO) 61.9 %; PLT - PLATELET COUNT 242 10^3/uL (130-450); RED BLOOD COUNT 4.91 10^6/uL (4.70-6.10); RED CELL DISTRIBUTION WIDTH 12.9 % (12.0-15.0); WHITE BLOOD COUNT 7.3 x10^3/uL (4.8-10.8)
[2024-01-02 11:21] LABS: ALBUMIN 4.4 g/dL (3.2-5.5); ALBUMIN/GLOBULIN RATIO 1.7 (1.0-2.2); BILIRUBIN,TOTAL 0.5 mg/dL (0.2-1.0); CALCIUM 9.7 mg/dL (8.5-10.3); CREATININE 0.9 mg/dL (0.6-1.3); POTASSIUM 4.1 mmol/L (3.5-4.5)
== END 2024-01-02 10:48 | disposition home or self-care (01) ==
LOC: LAB 10:47
PROVIDERS: ATTEND Psychiatry & Neurology Neurology
DX: Z51.81 Encounter for therapeutic drug level monitoring (principal)
CPT/HCPCS: 36415; 80053; 85025